=== PATIENT | female | born 1995 | race African-American/Black ===

== ENCOUNTER → 2021-04-30 14:17 | Outpatient (CLI) | payer OTHER, MEDICAID, SELFPAY ==
--- NOTE | 2021-04-30 14:24 | DI.US.S_ITS ---
PROCEDURE: US OB LIMITED INDICATIONS: DATING, LATE TO CARE OUTSIDE/PRIOR DATING DATA: First dating scan (date and location): 04/30/2021 . Estimated date of delivery (STEPHANE) from first dating scan: 10/06/2021 . TECHNIQUE: Real-time scanning was performed of the fetus, with image documentation and biometric measurements. Endovaginal scanning: No COMPARISON: [facility], , US OB < 14 WEEKS + OB TRANSVAG, 02/14/2021, 2:43. FINDINGS: General: A single living intrauterine gestation is present. Presentation: Variable. Placenta: Placental position is posterior , without previa. Amniotic fluid index: 13.3 cm, normal range is 5-24 cm. heart rate: 155 beats per minute. Maternal cervical canal: 3.6 cm long. Normal lower limit is 2.5 cm. biometrics: Biparietal diameter: 17 weeks 5 days Head circumference: 17 weeks 3 days Abdominal circumference: 17 weeks 1 day Femur length: 16 weeks 5 days Estimated gestational age from initial scan: not applicable. Composite gestational age from present scan: 17 weeks 2 days Estimated weight and percentile: 177 g Measurement variability for biometric dating: +/- 7 days from 14 weeks to 15 weeks 6 days gestation, +/- 10 days from 16 weeks to 21 weeks 6 days gestation, +/- 2 weeks from 22 weeks to 27 weeks 6 days gestation, +/- 3 weeks for 28 weeks gestation or later. weight reference: 4500 g or EFW >90/95% is considered macrosomia or large for gestational age. EFW <10% is small for gestational age. EFW 5% or less is considered intra-uterine growth restriction. Other: Limited anatomy. IMPRESSION: 17 week 2 day single living IUP corresponding to ultrasound STEPHANE of 10/06/2021. Limited anatomic survey secondary to early age. Follow-up recommended. Dictated by: Jatin PAUL Interpreted: Shreyas Barrett MD on 04/30/2021 at 15:57 Transcribed by: EASTON on 04/30/2021 at 15:59 Approved by: Shreyas Barrett M.D. on 04/30/2021 at 17:16
== END ==
PROVIDERS: Referring Provider Obstetrics & Gynecology; Visit Provider Obstetrics & Gynecology
DX: Z36.87 Encounter for antenatal screening for uncertain dates (principal); Z3A.17 17 weeks gestation of pregnancy
CPT/HCPCS: 76815

== ENCOUNTER → 2021-05-01 11:57 | Outpatient (CLI) | payer OTHER, MEDICAID, SELFPAY ==
[2021-05-01 12:58] LABS: Add Manual Diff / Slide Review NO; Basophils Absolute Auto 0 /uL (0-100); Basophils Percent Auto 0.4 % (0-2); Eosinophils Absolute Auto 0 /uL (0-450); Eosinophils Percent Auto 0.5 % (2-4); Hematocrit 36.4 % (36-46); Hemoglobin 12.4 g/dL (12.0-16.0); Lymphocytes Absolute Auto 1600 /uL (1100-4500); Lymphocytes Percent Auto 24.1 % (25-40); Mean Corpuscular Hemoglobin 30.3 PG (26-34); Monocytes Absolute Auto 400 /uL (0-900); Monocytes Percent Auto 5.9 % (3-14); Neutrophils Absolute Auto 4700 /uL (1500-7000); Neutrophils Percent Auto 69.1 % (50-75); Platelet Count 221 X10^3/uL (150-400); Red Blood Cell Count 4.09 X10^6/uL (4.0-5.2); Red Cell Distribution Width 14.3 % (11.6-14.8); White Blood Cell Count 6.8 X10^3/uL (4.5-11.0)
[2021-05-01 13:59] LABS: Appearance Urine UA SL CLOUDY; Bilirubin Urine UA NEGATIVE (NEGATIVE); Color Urine UA YELLOW; Glucose Urine UA TRACE g/dL (Negative); Ketones Urine UA NEGATIVE (NEGATIVE); Leukocyte Esterase Urine UA 1+ (NEGATIVE); Nitrite Urine UA NEGATIVE (Negative); Occult Blood Urine UA NEGATIVE (Negative); Protein Urine UA 1+ (Negative); Specific Gravity Urine UA 1.015 (1.000-1.035)
[2021-05-01 14:12] LABS: RBC Urine None Seen (0-5/HPF)
[2021-05-01 14:32] LABS: WBC Urine 5-10/HPF (0-5/HPF)
[2021-05-01 14:33] LABS: Bacteria Urine Many (>30); Squamous Epithelial Cell Urine >30 /HPF (0-5/HPF)
[2021-05-01 15:04] LABS: Vitamin B12 296 pg/mL (239-931)
[2021-05-01 15:42] LABS: Vitamin D 25 Hydroxy (D3) 22.3 ng/mL (30.0-100.0)
[2021-05-02 08:27] LABS: RPR Screen Non Reactive (Non Reactive)
[2021-05-02 08:36] LABS: Varicella IgG Antibody <135 index (Immune >165)
[2021-05-02 19:09] LABS: Hepatitis B Surface Antigen NEGATIVE s/c (NEGATIVE); Rubella Antibody IgG 20.6 IU/mL (>15)
[2021-05-02 19:34] LABS: Hep C Virus Ab w/Reflex Quant NEGATIVE s/c (NEGATIVE)
[2021-05-02 20:14] LABS: HIV 1 & 2 Ab/Ag 4th Gen Combo NEGATIVE (NEGATIVE)
[2021-05-03 19:55] LABS: AFP, Serum 50.5 ng/mL (.); Calc Gestational Age Ultrasound (.); Estriol, Free 1.96 ng/mL (.); Inhibin A, Dimeric 200.68 pg/mL (.); Inhibin A, MoM 1.55 (.); Maternal Ethnicity Other (.); Maternal Weight 203 lbs (.); Number of Fetuses No (.); OSBR Risk 1 IN 2523 (.); Results Report (.); Test Results *Screen Negative* (.); hCG, Serum 60819 mIU/mL (.)
== END ==
PROVIDERS: Referring Provider Obstetrics & Gynecology; Visit Provider Obstetrics & Gynecology
DX: Z34.82 Encounter for supervision of other normal pregnancy, second trimester (principal); Z3A.17 17 weeks gestation of pregnancy
CPT/HCPCS: 36415; 80055; 81003; 81015; 82105; 82306; 82607; 82677; 84702; 86336; 86787; 86803; 86850; 86900; 86901; 87086; 87389

== ENCOUNTER → 2021-05-23 08:51 | Outpatient (CLI) | payer OTHER, MEDICAID, SELFPAY ==
--- NOTE | 2021-05-23 08:52 | DI.US.S_ITS ---
PROCEDURE: US OB >= 14 WEEKS FETUS INDICATIONS: ANATOMY OUTSIDE/PRIOR DATING DATA: Last menstrual period (LMP): Unknown. LMP-based estimated date of delivery (STEPHANE): Unknown. First dating scan (date and location): 02/14/2021 [facility]. Estimated date of delivery (STEPHANE) from first dating scan: 10/06/2021. TECHNIQUE: Real-time scanning was performed of the fetus, with image documentation and biometric measurements. Endovaginal scanning: Not performed. COMPARISON: [facility], OB LIMITED, 04/30/2021, 14:28. FINDINGS: General: A single living intrauterine gestation is present. Presentation: Variable. Placenta: Placental position is posterior fundal, without previa. Amniotic fluid index: 17.4 cm, normal range is 5-24 cm. heart rate: 169 beats per minute. Maternal cervical canal: 4.9 cm long. Normal lower limit is 2.5 cm. biometrics: Biparietal diameter: 4.9 cm, 20 weeks 5 days Head circumference: 12.5 cm, 20 weeks 0 days Abdominal circumference: 14.9 cm, 20 weeks 1 day Femur length: 3.2 cm, 19 weeks 6 days Estimated gestational age from initial scan: 20 weeks 4 days Composite gestational age from present scan: 20 weeks 1 day Estimated weight and percentile: 330 g, 21st percentile Measurement variability for biometric dating: +/- 7 days from 14 weeks to 15 weeks 6 days gestation, +/- 10 days from 16 weeks to 21 weeks 6 days gestation, +/- 2 weeks from 22 weeks to 27 weeks 6 days gestation, +/- 3 weeks for 28 weeks gestation or later. weight reference: 4500 g or EFW >90/95% is considered macrosomia or large for gestational age. EFW <10% is small for gestational age. EFW 5% or less is considered intra-uterine growth restriction. Anatomic survey: Neuro: Ventricles are non-dilated at less than 10 mm. Cisterna magna is normal at 3-11 mm. Cerebellum is normal in size and morphology. Nuchal skin fold: Normal at less than 6 mm between 14-21 weeks gestational age. Face: Nose and lips, facial profile are normal. Spine: No evidence for spina bifida. Heart: 4-chambered heart is present, with normal ventricular outflow tracts. Diaphragm: Diaphragm is intact. Stomach: Left-sided stomach is present. Kidneys: No hydronephrosis. Normal is less than 5 mm in 2nd trimester, less than 7 mm in 3rd trimester. Cord: 3-vessel cord has orthotopic insertion. Bladder: Normal in size. Extremities: All 4 extremities identified. IMPRESSION: 1. [place] living intrauterine at 20 weeks 1 day based on today's ultrasound. This is concordant with the prior ultrasound. There is expected interval growth. 2. Normal placenta and amniotic fluid. 3. Normal and complete anatomic survey. Dictated by: Thomas Moise M.D. on 05/23/2021 at 10:20 Approved by: Thomas Moise M.D. on 05/23/2021 at 10:25
== END ==
PROVIDERS: Referring Provider Obstetrics & Gynecology; Visit Provider Obstetrics & Gynecology
DX: Z34.82 Encounter for supervision of other normal pregnancy, second trimester (principal); Z3A.20 20 weeks gestation of pregnancy
CPT/HCPCS: 76811

== ENCOUNTER → 2021-05-30 09:27 | Outpatient (CLI) | payer OTHER, MEDICAID, SELFPAY ==
[2021-05-30 13:03] LABS: Bacteria Urine None Seen; RBC Urine None Seen (0-5/HPF)
[2021-05-30 13:40] LABS: Appearance Urine UA TURBID; Bilirubin Urine UA NEGATIVE (NEGATIVE); Color Urine UA YELLOW; Glucose Urine UA NEGATIVE (Negative); Ketones Urine UA NEGATIVE (NEGATIVE); Leukocyte Esterase Urine UA 2+ (NEGATIVE); Nitrite Urine UA NEGATIVE (Negative); Occult Blood Urine UA TRACE-INTACT (Negative); Protein Urine UA 1+ (Negative)
[2021-05-30 14:25] LABS: WBC Urine 5-10/HPF (0-5/HPF)
[2021-05-30 14:26] LABS: Amorphous Sediment Urine 3+; Calcium Oxalate Crystals Urine Few
[2021-05-30 14:28] LABS: Culture Indicated Urine Specimen Cultured; Squamous Epithelial Cell Urine 1-5 /HPF (0-5/HPF)
== END ==
PROVIDERS: Visit Provider Obstetrics & Gynecology
DX: Z34.82 Encounter for supervision of other normal pregnancy, second trimester (principal); R39.9 Unspecified symptoms and signs involving the genitourinary system; Z3A.22 22 weeks gestation of pregnancy
CPT/HCPCS: 81001; 87086

== ENCOUNTER → 2021-07-06 08:11 | Outpatient (CLI) | payer OTHER, MEDICAID, SELFPAY | PROVIDERS: Referring Provider Obstetrics & Gynecology; Visit Provider Obstetrics & Gynecology | DX: Z34.82 Encounter for supervision of other normal pregnancy, second trimester (principal); Z3A.25 25 weeks gestation of pregnancy; Z53.8 Procedure and treatment not carried out for other reasons ==

== ENCOUNTER 2021-07-06 08:35 | Emergency (ER) | payer OTHER, MEDICAID, SELFPAY ==
[2021-07-06] VITALS (7 sets, daily range): BP systolic 91–111; BP diastolic 60–73; PULSE 61–70; RESP 14–18; TEMP 36.9; O2SAT 98–100; BMI 36.6
--- NOTE | 2021-07-06 08:47 | ED.GENADULT ---
HPI - General Adult General Chief complaint: Dizziness Stated complaint: dizziness, can't see, heat flashes Time Seen by Provider: 07/06/21 08:36 Source: patient Mode of arrival: Wheelchair History of Present Illness HPI narrative: Patient is a 25 year old female. Second trimester. Was here at the hospital for a scheduled outpatient ultrasound. States she was sitting at the [employer] registration desk when she started to feel lightheaded. She states that her vision went white. Stated that she could hear anything. At the time was not having chest pain. No shortness of breath. Did not feel like her heart was beating faster beating slow. She currently feels better but is still somewhat lightheaded. No vaginal bleeding. No urinary symptoms. No cramping. No diarrhea. No nausea vomiting. Related Data Home Medications Medication Instructions Recorded Confirmed prenat.vits,prateek,ojq-sjva-sklci 1 tab PO DAILY 04/27/21 05/01/21 Allergies Allergy/AdvReac Type Severity Reaction Status Date / Time latex Allergy Intermediate Red, Verified 05/01/21 11:04 irritated skin. Review of Systems Eyes Eyes: Reports system reviewed and no additional complaints, except as documented ENT Ears, Nose, Mouth, and Throat: Reports system reviewed and no additional complaints, except as documented Cardiovascular Cardiovascular: Reports as per HPI and Reports system reviewed and no additional complaints, except as documented Respiratory Respiratory: Reports as per HPI and Reports system reviewed and no additional complaints, except as documented Gastrointestinal Gastrointestinal: Reports as per HPI and Reports system reviewed and no additional complaints, except as documented Genitourinary Genitourinary: Reports system reviewed and no additional complaints, except as documented and Reports as per HPI Musculoskeletal Musculoskeletal: Reports system reviewed and no additional complaints, except as documented Integumentary/Breasts Skin/Breast: Reports system reviewed and no additional complaints, except as documented Neurologic Neurologic: Reports system reviewed and no additional complaints, except as documented Hematologic/Lymphatic On Anticoagulants: No Allergic/Immunologic Allergic/Immunologic: Reports system reviewed and no additional complaints, except as documented Patient History Medical History Gastroesophageal reflux during in first trimester, antepartum Late care affecting , antepartum Surgical History (Updated 05/01/21 @ 13:49 by Yamil Hanson MD) History of weight loss surgery (~11/04/20) [place] teeth extracted (~11/2019) Family History Mother No problems noted. Father No problems noted. Grandmother No problems noted. Grandfather No problems noted. Grandmother Blind in both eyes Grandfather No problems noted. Social History marital status: unmarried,living together (Paige', life partner.) number of children: 2 household members: spouse and children (Paige's daughter lives with them half of the year. ) lives independently: Yes caregiver/support person: No housing: house pets and animals: Yes (1 dog: safe. 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 Prior to her gastric surgery, flucuated 100lbs+/- annually. Nexplanon caused wt gain, had it removed. ) well-balanced diet: daily or most days (Small, frequent meals, eat well most of time.) daily servings fruits/ve or more times/day caffeine: Yes (Gibraltarian milk tea, 4 small cans/week. ) Type(s) of exercise: walking (Frequent walks with son. ) and normal ROM and activity (Mom to busy 6 year old. ) frequency: daily duration: 30-45 minutes/day Smoking Status: Never smoker Exam Initial Vital Signs Initial Vital Signs: Vital Signs Temperature 98.4 F 07/06/21 08:50 Pulse Rate 70 07/06/21 08:50 Respiratory Rate 18 07/06/21 08:50 Blood Pressure 111/73 07/06/21 08:50 Pulse Oximetry 98 07/06/21 08:50 Const General: cooperative, healthy appearing, comfortable and well developed HENVA Head: normal to inspection and normocephalic Eyes General: appearance normal, both eyes and all related structures Resp Effort & Inspection: normal respiratory effort Auscultation: clear to auscultation bilaterally Cardio Rate: regular rate Rhythm: regular rhythm GI Palpation: soft Other: Gravid Other: No vaginal bleeding Skin Lesions: no lesions Rashes: no rashes Neuro General: patient alert, patient awake and patient oriented x3 Extrem General: normal to inspection and capillary refill normal Psych Appearance: grossly normal and well kempt Course Orders Ordered: ED Orders 07/06/21 08:48 EKG-12 Lead Stat 07/06/21 08:57 Complete Blood Count AUTO DIFF Stat Comprehensive Metabolic Panel Stat Lipase Stat Discontinued Medications Sodium Chloride (Normal Saline 0.9%) 1,000 mls @ 1,000 mls/hr IV BOLUS ONE Stop: 07/06/21 09:39 Last Infusion: 07/06/21 10:22 Dose: 0 mls/hr Documented by: Admin: 07/06/21 09:11 Dose: 1,000 mls/hr Documented by: THIERRY Vital Signs Vital signs: Vital Signs - 8 hr 07/06/21 08:50 07/06/21 09:30 07/06/21 10:07 Temperature 98.4 F Pulse Rate 70 70 65 Respiratory Rate 18 18 16 Blood Pressure 111/73 101/67 91/60 Pulse Oximetry 98 98 100 Medical Decision Making Lab Data Lab results reviewed: Yes I reviewed the patient's lab results. Result diagrams: 07/06/21 08:57 07/06/21 08:57 Labs: Lab Results 07/06/21 07/06/21 Range/Units 08:57 08:57 WBC 6.4 (4.5-11.0) X10^3/uL RBC 3.74 L (4.0-5.2) X10^6/uL Hgb 11.3 L (12.0-16.0) g/dL Hct 33.6 L (36-46) % MCV 89.8 (80-100) fL MCH 30.2 (26-34) PG MCHC 33.6 (30-36) % RDW 13.4 (11.6-14.8) % Plt Count 248 (150-400) X10^3/uL Neut % (Auto) 64.0 (50-75) % Lymph % (Auto) 28.8 (25-40) % [place] % (Auto) 6.2 (3-14) % Eos % (Auto) 0.6 L (2-4) % Baso % (Auto) 0.4 (0-2) % Neut # (Auto) 4100 (4651-4380) /uL Lymph # (Auto) 1800 (9296-4084) /uL [place] # (Auto) 400 (0-900) /uL Eos # (Auto) 0 (0-450) /uL Baso # (Auto) 0 (0-100) /uL Sodium 135 L (137-145) mmol/L Potassium 3.8 (3.4-5.1) mmol/L Chloride 107 (98-107) mmol/L Carbon Dioxide 21 L (22-32) mmol/L BUN 6 L (7-17) mg/dL Creatinine 0.44 L (0.52-1.04) mg/dL Estimated GFR > 60.0 (>60) mL/min BUN/Creatinine Ratio 13.6 (6-22) Glucose 94 (70-100) mg/dL Calcium 9.2 (8.4-10.2) mg/dL Total Bilirubin 0.6 (0.2-1.3) mg/dL AST 22 (14-36) IU/L ALT 9 (<35) IU/L Alkaline Phosphatase 60 (38-126) U/L Total Protein 7.2 (6.3-8.2) g/dL Albumin 3.9 (3.5-5.0) g/dL Globulin 3.3 (1.7-4.1) g/dL Albumin/Globulin Ratio 1.2 (1.0-2.8) Lipase 71 (23-300) U/L Urine Dip Bedside Urine Glucose Negative Bedside Urine Bilirubin - Negative Bedside Urine Ketone - Negative Urine Specific [place] 1.015 Bedside Urine Occult Blood - Negative Bedside Urine pH 8.0 Bedside Urine Protein - Negative Bedside Urine Urobilinogen - Negative Bedside Urine Nitrite - Negative Bedside Urine Leukocytes +/- 15 Esterase Point of care testing: Urine Dip Bedside Urine Glucose Negative Bedside Urine Bilirubin - Negative Bedside Urine Ketone - Negative Urine Specific [place] 1.015 Bedside Urine Occult Blood - Negative Bedside Urine pH 8.0 Bedside Urine Protein - Negative Bedside Urine Urobilinogen - Negative Bedside Urine Nitrite - Negative Bedside Urine Leukocytes +/- 15 Esterase ECG Data Attestation: I personally reviewed and interpreted this ECG as follows: Interpretation: Sinus rhythm Ventricular rate 91 Normal axis Normal QRS Normal QTC No ST T wave changes MDM Narrative Medical decision making narrative: Labs unremarkable. Has no specific related symptoms. No cramping. No vaginal bleeding. Feels better after fluids. Symptoms today most likely vasovagal. Will discharge patient home without further workup. No need for radiologic studies. Will have her contact the ultrasound department to see if she can reschedule her ultrasound for today or if she can get it performed today. She will keep all of her scheduled medical appointments. She expressed understanding and agreement of return precautions. Discharge Plan Departure Patient Disposition: Home Clinical Impression: Vasovagal syncope, Instructions: DI for Syncope in Adults (Fainting) Activity Restrictions/Additional Instructions: Be sure to increase your fluid intake. Keep all of your scheduled medical appointments. Return to the emergency department for any new or worsening symptoms Prescriptions: No Action prenat.vits,prateek,tfb-[id number]-[id number] Tablet 1 tab PO DAILY RF: 0 Referrals: Miscellaneous,Doctor, [Primary Care Provider] -
[2021-07-06] MEDS: SODIUM CHLORIDE 0.9% 1,000 ML 1000 ML IV (09:11)
[2021-07-06 09:12] LABS: Add Manual Diff / Slide Review NO; Basophils Absolute Auto 0 /uL (0-100); Basophils Percent Auto 0.4 % (0-2); Eosinophils Absolute Auto 0 /uL (0-450); Eosinophils Percent Auto 0.6 % (2-4); Hematocrit 33.6 % (36-46); Hemoglobin 11.3 g/dL (12.0-16.0); Lymphocytes Absolute Auto 1800 /uL (1100-4500); Lymphocytes Percent Auto 28.8 % (25-40); Mean Corpuscular HGB Conc 33.6 % (30-36); Mean Corpuscular Hemoglobin 30.2 PG (26-34); Mean Corpuscular Volume 89.8 fL (80-100); Monocytes Absolute Auto 400 /uL (0-900); Monocytes Percent Auto 6.2 % (3-14); Neutrophils Absolute Auto 4100 /uL (1500-7000); Platelet Count 248 X10^3/uL (150-400); Red Blood Cell Count 3.74 X10^6/uL (4.0-5.2); Red Cell Distribution Width 13.4 % (11.6-14.8); White Blood Cell Count 6.4 X10^3/uL (4.5-11.0)
[2021-07-06 09:23] LABS: Alanine Aminotransferase 9 IU/L (<35); Albumin 3.9 g/dL (3.5-5.0); Albumin Globulin Ratio 1.2 (1.0-2.8); Alkaline Phosphatase 60 U/L (38-126); Aspartate Aminotransferase 22 IU/L (14-36); BUN Creatinine Ratio 13.6 (6-22); Bilirubin Total 0.6 mg/dL (0.2-1.3); Blood Urea Nitrogen 6 mg/dL (7-17); Calcium 9.2 mg/dL (8.4-10.2); Carbon Dioxide 21 mmol/L (22-32); Chloride 107 mmol/L (98-107); Estimated Glomerular Filt Rate > 60.0 mL/min (>60); Globulin 3.3 g/dL (1.7-4.1); Glucose 94 mg/dL (70-100); HEMOLYSIS 34 (0-50); Lipase 71 U/L (23-300); Potassium 3.8 mmol/L (3.4-5.1); Sodium 135 mmol/L (137-145); Total Protein 7.2 g/dL (6.3-8.2)
== END 2021-07-06 10:44 | disposition home or self-care (01) ==
PROVIDERS: Emergency Provider Emergency Medicine
DX: O26.892 Other specified pregnancy related conditions, second trimester (principal); R55 Syncope and collapse
CPT/HCPCS: 36415; 80053; 81003; 83690; 85025; 93005; 93010; 96360; 99284

== ENCOUNTER 2021-08-24 23:50 | Outpatient (CLI) | payer OTHER, MEDICAID, SELFPAY | END 2021-08-25 00:42 | disposition home or self-care (01) | LOC: LABOR 23:54 → OB 08-28 11:16 | PROVIDERS: Referring Provider Obstetrics & Gynecology; Visit Provider Obstetrics & Gynecology | DX: O26.893 Other specified pregnancy related conditions, third trimester (principal); R10.2 Pelvic and perineal pain; Z3A.34 34 weeks gestation of pregnancy | CPT/HCPCS: 59025; G0378; G0379 ==

== ENCOUNTER → 2021-09-05 17:21 | Outpatient (CLI) | payer OTHER, MEDICAID, SELFPAY ==
[2021-09-06 15:25] LABS: Strep Grp B PCR NEG for Grp B Strep
== END ==
PROVIDERS: Visit Provider Obstetrics & Gynecology
DX: Z34.83 Encounter for supervision of other normal pregnancy, third trimester (principal); Z3A.36 36 weeks gestation of pregnancy
CPT/HCPCS: 87653

== ENCOUNTER → 2021-09-21 15:17 | Outpatient (CLI) | payer OTHER, MEDICAID, SELFPAY ==
--- NOTE | 2021-09-21 15:18 | DI.US.S_ITS ---
PROCEDURE: US OB FOLLOW UP INDICATIONS: GROWTH, SIZE LESS THAN DATES OUTSIDE/PRIOR DATING DATA: First dating scan (date and location): 04/30/2021. Estimated date of delivery (STEPHANE) from first dating scan: 10/06/2021. The calculations are made using the ultrasounds STEPHANE of 10/06/2021. TECHNIQUE: Real-time scanning was performed of the fetus, with image documentation and biometric measurements. Endovaginal scanning: No COMPARISON: [facility], US, US OB >= 14 WEEKS FETUS, 07/26/2021, 13:03. FINDINGS: General: A single living intrauterine gestation is present. Presentation: Breech. Placenta: Placental position is posterior fundal , without previa. Amniotic fluid index: 9.9 cm, normal range is 5-24 cm. heart rate: 153 beats per minute. Maternal cervical canal: 9.9 cm long. Normal lower limit is 2.5 cm. biometrics: Biparietal diameter: 35 weeks 5 days Head circumference: 36 weeks 4 days Abdominal circumference: 34 weeks 4 days Femur length: 33 weeks 6 days Clinically estimated gestational age: 37 weeks 6 days Composite gestational age from present scan: 35 weeks 1 day Estimated weight and percentile: 2461 g; 3rd percentile Other: Not applicable. IMPRESSION: Single living IUP redemonstrated and interval growth is less than expected with the estimated weight 3rd percentile. Developing intrauterine growth restriction cannot be excluded and close clinical correlation and follow-up is recommended. We strive to produce accurate, complete, and clear reports of imaging services. To assist us in improving patient care, this report was composed using standard report templates and voice recognition software. Therefore, it may contain abnormal punctuation, insertions and/or omissions. Occasional wrong-word or sound-alike substitutions may occur. Though we review the report and make efforts to correct it, we do recommend that the report be read carefully in proper context to recognize any text inaccuracies. Dictated by: Jatin PAUL Interpreted: Valdez Trejo MD on 09/21/2021 at 15:57 Transcribed by: MO on 09/21/2021 at 16:00 Approved by: Valdez Trejo M.D. on 09/24/2021 at 9:15
== END ==
PROVIDERS: Referring Provider Obstetrics & Gynecology; Visit Provider Obstetrics & Gynecology
DX: O26.843 Uterine size-date discrepancy, third trimester (principal); Z3A.35 35 weeks gestation of pregnancy
CPT/HCPCS: 76816

== ENCOUNTER 2021-09-25 11:20 | Observation (INO) | payer OTHER, MEDICAID, SELFPAY ==
[2021-09-25] MEDS: LACTATED RINGERS 1,000 ML 1000 ML IV (12:26)
--- NOTE | 2021-09-25 13:27 | P.TNLD_ITS ---
Visit Information Visit Information Date of evaluation: 09/25/21 Primary OB Provider: Yamil Hanson Reason for Evaluation: Yes other Comments/Additional reasons for admission: External cephalic version attempt. Patient was found to be in breech presentation on pelvic ultrasound performed 09/21/2021. The patient presents today for attempt at external cephalic version. Induction previously scheduled due to IUGR (3rd percentile) with normal ZOË. [facility] Medical History Gastroesophageal reflux during in first trimester, antepartum Late care affecting , antepartum Surgical History (Updated 05/01/21 @ 13:49 by Yamil Hanson MD) History of weight loss surgery (~11/04/20) [place] teeth extracted (~11/2019) Family History Mother No problems noted. Father No problems noted. Grandmother No problems noted. Grandfather No problems noted. Grandmother Blind in both eyes Grandfather No problems noted. Social History marital status: unmarried,living together (Paige', life partner.) number of children: 2 household members: spouse and children (Paige's daughter lives with them half of the year. ) lives independently: Yes caregiver/support person: No housing: house pets and animals: Yes (1 dog: safe. 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 Prior to her gastric surgery, flucuated 100lbs+/- annually. Nexplanon caused wt gain, had it removed. ) well-balanced diet: daily or most days (Small, frequent meals, eat well most of time.) daily servings fruits/ve or more times/day caffeine: Yes (English milk tea, 4 small cans/week. ) Type(s) of exercise: walking (Frequent walks with son. ) and normal ROM and activity (Mom to busy 6 year old. ) frequency: daily duration: 30-45 minutes/day Exam Const General: cooperative, well developed and No acute distress Nutritional Appearance: average body habitus Orientation: alert and oriented x3 HENMT Head: normal to inspection Eyes General: appearance normal, both eyes and all related structures Neck Neck: normal visual inspection Resp Effort & Inspection: normal respiratory effort and able to speak in complete sentences GI Palpation: soft, no hepatosplenomegaly and mass (Soft, nontender fundus, 36 cm fundal height) Uterus Location (Fundal Height): 36 Presentation: vertex (Confirmed with bedside ultrasound) Estimated Weight (lbs): 6 Evaluation Evaluation Baseline heart rate: 140 Variability: Moderate (11-25) monitor accelerations: Present Monitor Decelerations: Absent Category of Tracing: Reactive Status: Category l Cervical dilation (cm): 2 Cervical effacement (%): 50 station: -2 Comments: Cervix is soft, posterior. Atkins score = 5. Diagnosis, Plan/Disposition Final Diagnosis (1) : Status: Acute (2) IUGR (intrauterine growth restriction): Status: Acute (3) Susceptible to varicella (non-immune), currently : Status: Acute Plan/Disposition Plan: Patient will return for ripening and induction later today. OB Disposition: home
== END 2021-09-25 13:22 | disposition home or self-care (01) ==
PROVIDERS: Admitting Provider Obstetrics & Gynecology; Referring Provider Obstetrics & Gynecology; Visit Provider Obstetrics & Gynecology
DX: O32.1XX0 Maternal care for breech presentation, not applicable or unspecified (principal); O36.5930 Maternal care for other known or suspected poor fetal growth, third trimester, not applicable or unspecified; Z3A.39 39 weeks gestation of pregnancy
CPT/HCPCS: 59025; 59050; 96372; G0378; G0379

== ENCOUNTER 2021-09-26 06:59 | Inpatient (IN) | payer OTHER, MEDICAID, SELFPAY ==
--- NOTE | 2021-09-26 08:06 | PM.OBHP.1 ---
OB HPI Date/Time Date of admission: 09/26/21 Date Patient Seen: 09/26/21 Time Patient Seen: 08:07 History of Present Condition Chief complaint: OBS OF LABOR : 2 Para: 1 Estimated Date of Delivery: 10/01/21 Estimated Gestational Age (weeks): 39+2 Narrative: Eddie Bowie is a 25 year old admitted at 39+2 for induction due to IUGR with her in the 3rd %'tile EFW. GBS negative. Indications Indication for induction OB: other (Advanced maternal age, 39+ 2 weeks gestational age) History of Present care: good care Dating criteria: LMP confirmed by 1st trimester US Obstetrical complications: growth restriction Medical complications: none Preadmission Labs Blood type: A (+) positive -: Antibody screen: negative, GBS status: negative, HBsAG: negative, HIV: negative and RPR/VDLR: negative -: Chlamydia screen: not detected and Gonorrhea screen: not detected -: Rubella: immune and Varicella: not immune HCT: 27.8 HCAB: negative PAP: Normal Quad screen: Normal Narrative: Unable to tolerate GDM screen Prior (ies) History: x1 Evaluation Evaluation Baseline heart rate: 120 Variability: Moderate (11-25) monitor accelerations: Present Monitor Decelerations: Absent Category of Tracing: Reactive Status: Category l Dilation (cm): 2 Effacement (%): 50 Dilation: 1-2 cm Effacement: 40-50% station: -2 Position of cervix: posterior Consistency: soft Atkins score: 5 PFSH Medical History Gastroesophageal reflux during in first trimester, antepartum Late care affecting , antepartum Surgical History History of weight loss surgery (~11/04/20) [place] teeth extracted (~11/2019) Family History Mother No problems noted. Father No problems noted. Grandmother No problems noted. Grandfather No problems noted. Grandmother Blind in both eyes Grandfather No problems noted. Social History marital status: unmarried,living together (Fiance', life partner.) number of children: 2 household members: spouse and children (Paige's daughter lives with them half of the year. ) lives independently: Yes caregiver/support person: No housing: house pets and animals: Yes (1 dog: safe. 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 Prior to her gastric surgery, flucuated 100lbs+/- annually. Nexplanon caused wt gain, had it removed. ) well-balanced diet: daily or most days (Small, frequent meals, eat well most of time.) daily servings fruits/ve or more times/day caffeine: Yes (Belarusian milk tea, 4 small cans/week. ) Type(s) of exercise: walking (Frequent walks with son. ) and normal ROM and activity (Mom to busy 6 year old. ) frequency: daily duration: 30-45 minutes/day Meds Home Medications and Allergies Home Medications Medication Instructions Recorded Confirmed Type prenat.vits,prateek,tet-meqn-oztwe 1 tab PO DAILY 04/27/21 09/26/21 History Allergies Allergy/AdvReac Type Severity Reaction Status Date / Time latex Allergy Intermediate Red, Verified 08/24/21 23:32 irritated skin. Review of Systems Review of Systems Narrative: Problem-specific ROS positives included in HPI OB Exam HENMT Head: normal to inspection Eyes General: appearance normal, both eyes and all related structures Resp Effort & Inspection: normal respiratory effort and able to speak in complete sentences Cardio Rhythm: regular rhythm Heart Sounds: S1 normal, S2 normal and no murmurs Uterus Location (Fundal Height): 35 Presentation: vertex Estimated Weight (lbs): 6 Objective Labs Result Diagrams: 09/26/21 08:45 Assessment and Plan Assessment and Plan Assessment and Plan narrative: ASSESSMENT Intrauterine gestation, 39+ 2 weeks gestational age Intrauterine growth restriction with normal ZOË and category 1 FHR tracing PLAN Admit for induction Anticipate Time Spent with Patient Total time spent with greater than 50% in coordination of care (as documented) at patient's floor/unit and/or counseling patient:: 15-24 minutes
[2021-09-26] MEDS: LACTATED RINGERS 1,000 ML 100 ML IV (08:10)
[2021-09-26] MEDS: OXYTOCIN PREMIX 30 UNIT/500 ML PLAST..BAG IV (08:42)
[2021-09-26 08:51] LABS: COVID19 -Nasal RAPID Negative (Negative)
[2021-09-26 09:01] LABS: Add Manual Diff / Slide Review NO; Basophils Absolute Auto 0 /uL (0-100); Basophils Percent Auto 0.4 % (0-2); Eosinophils Absolute Auto 0 /uL (0-450); Eosinophils Percent Auto 0.6 % (2-4); Hematocrit 27.8 % (36-46); Hemoglobin 9.4 g/dL (12.0-16.0); Lymphocytes Absolute Auto 1800 /uL (1100-4500); Lymphocytes Percent Auto 40.4 % (25-40); Mean Corpuscular Volume 82.4 fL (80-100); Monocytes Absolute Auto 400 /uL (0-900); Monocytes Percent Auto 9.4 % (3-14); Neutrophils Absolute Auto 2200 /uL (1500-7000); Neutrophils Percent Auto 49.2 % (50-75); Platelet Count 160 X10^3/uL (150-400); Red Blood Cell Count 3.37 X10^6/uL (4.0-5.2); Red Cell Distribution Width 13.5 % (11.6-14.8); White Blood Cell Count 4.4 X10^3/uL (4.5-11.0)
[2021-09-26] MEDS: ONDANSETRON 4 MG/2 ML INJ IV ×2 (09:08→22:30)
[2021-09-26 09:42] VITALS: BP 103/64
--- NOTE | 2021-09-26 13:37 | PM.OBPNLAB ---
Date/Time Date Patient Seen: 09/26/21 Time Patient Seen: 13:25 Pain Control Pain control: tolerating well Pelvic Exam Dilation (cm): 3 Effacement (%): 100 station: -1 Amniotic membrane status: Ruptured Comments: AROM attempted but unclear whether it was successful as no gross ROM occured. Contractions Contractions on admission: none Monitor mode: External Contraction frequency (min): 2 Contraction duration (min): 1 Contraction pattern: Regular Contraction phase: Resting Contraction intensity: Moderate Status status: Category l Heart Rate Baseline: 120 Monitor Accelerations: Present Monitor Decelerations: Absent Monitor Variability: Moderate Assessment and Plan Assessment: induction ongoing Plan: continuous present management Comments: Anticipate .
--- NOTE | 2021-09-26 15:41 | P.PCN_ITS ---
Regional Block Pre-procedure Procedure: Continuous Lumbar Epidural for L&D Attending OB provider: Yamil Hanson PMH/ROS narrative: with IUGR Hx: No personal or family history of anesthesia problems. PSH/Anesthesia history narrative: Previous fast labor without epidural Gastric sleeve 10/2020, no issues. Exam narrative: MP3, RRR, CTAB ASA Class: II Labs: Hct 27.8 % (36-46) L 09/26/21 08:45 Plt Count 160 X10^3/uL (150-400) 09/26/21 08:45 Medications: Current Medications Generic Name Dose Route Start Last Admin Trade Name Freq PRN Reason Stop Dose Admin Acetaminophen 650 mg 09/26/21 08:05 Acetaminophen 325 Mg Tablet PO Q4HR PRN Fever/Mild Pain (1-3) Carboprost Tromethamine 250 mcg 09/26/21 08:56 Carboprost 250 Mcg/Ml Ampul IM Q90M PRN Bleeding Fentanyl 50 mcg 09/26/21 08:56 Fentanyl 100 Mcg/2 Ml Inj IV Q1H PRN Pain, Moderate (4-6) Lactated Ringer's 1,000 mls @ 100 mls/hr 09/26/21 08:15 09/26/21 08:10 Lactated Ringers IV 100 mls/hr CONT GARRETT Administration Oxytocin/Lactated Ringer's 30 unit in 500 mls @ 3 mls/hr 09/26/21 08:15 09/26/21 08:42 Oxytocin Premix IV 3 milliunit/min TITRATE GARRETT 3 mls/hr Administration Protocol 3 MILLIUNIT/MIN Lactated Ringer's 1,000 mls @ 100 mls/hr 09/26/21 09:00 Lactated Ringers IV CONT GARRETT Tranexamic Acid 1,000 mg/ 100 mls @ 200 mls/hr 09/26/21 08:56 Sodium Chloride IV NOW PRN Bleeding Methylergonovine Maleate 0.2 mg 09/26/21 08:56 Methylergonovine 0.2 Mg Tablet PO Q6HR PRN Heavy Bleeding Methylergonovine Maleate 0.2 mg 09/26/21 08:56 Methylergonovine 0.2 Mg/Ml Vial IM NOW PRN Bleeding Misoprostol 800 mcg 09/26/21 08:56 Misoprostol 200 Mcg Tablet LA NOW PRN Bleeding Misoprostol 1,000 mcg 09/26/21 08:56 Misoprostol 200 Mcg Tablet LA NOW PRN Bleeding Misoprostol 400 mcg 09/26/21 08:56 Misoprostol 200 Mcg Tablet SL NOW PRN Bleeding Naloxone HCl 0.2 mg 09/26/21 08:56 Naloxone 0.4 Mg/Ml Vial IV Q2MIN PRN Opiate Reversal Ondansetron HCl 4 mg 09/26/21 08:54 09/26/21 09:08 Ondansetron 4 Mg/2 Ml Inj IV 4 mg Q4HR PRN Administration Nausea And Vomiting Oxytocin 10 unit 09/26/21 08:56 Oxytocin 10 Unit/Ml Vial IM NOW PRN Bleeding Allergies: Allergies Allergy/AdvReac Type Severity Reaction Status Date / Time latex Allergy Intermediate Red, Verified 08/24/21 23:32 irritated skin. Procedure Insertion date: 09/26/21 Insertion time: 15:15 Prep/Local: betadine x3 (chloroprep) and 1% lidocaine Interspace: L3-4 Patient position: sitting Needle: 18 gauge [employer] (with 27G pencil point needle-through needle for IT dose) Loss of resistance with: saline (with air bubble) KRISTY at (cm): 6 Catheter placed at SKIN (cm): 11 Catheter in SPACE (cm): 5 Insertion: Yes CSF, No Blood, No Paresthesia with insertion, No Paresthesia with injection and No Test dose reaction Initial Medications TEST DOSE time: 15:15 TEST DOSE: 1.5% lidocaine with epinephrine 1:200k (mL): 5 (3mL initial test dose, 2mL as part of first bolus) BOLUS DOSE time: 15:16 BOLUS DOSE (mL): 2 BOLUS DOSE med: other (10mcg fentanyl intrathecally, 90mcg fentanyl via epidural catheter) Infusion INFUSION: 0.0625% bupivacaine and with fentanyl 2 mcg/mL Initial rate (mL/hr): 12 (with bolus of 4mL Q15min lockout) Subsequent interventions: 20:40 - called with OB request to turn epidural down to aid with baby coming down. Asked RN to turn off the pump. 20:50 - discussed with patient, feels tightness with contractions but no pain, able to move legs at hip flexors and wiggle toes, but previously legs were quite heavy. OB would like more strength to help with positioning, not necessarily an decrease in the numbness to sensation. Patient agreeable to turn down from 12mL/hr to 9mL/hr. 4mL bolus Q15min available (and unused so far). Post-procedure Anesthesia time START: 14:58 Anesthesia time END: 21:53 Post-procedure Anesthesia Assessment: No Anesthesia complications
--- NOTE | 2021-09-26 18:25 | PM.OBPNLAB ---
Date/Time Date Patient Seen: 09/26/21 Time Patient Seen: 17:40 Pain Control Pain control: epidural Comments: Very comfortable Pelvic Exam Dilation (cm): 5 Effacement (%): 80 station: 0 Amniotic membrane status: Ruptured Comments: Clear fluid Contractions Monitor mode: External Contraction frequency (min): 2 Contraction pattern: Regular Contraction phase: Resting Contraction intensity: Moderate Status status: Category l Heart Rate Baseline: 115 Monitor Accelerations: Present Monitor Decelerations: Absent Monitor Variability: Moderate Assessment and Plan Assessment: induction ongoing Plan: continuous present management Comments: Will re-evaluate in 1-[address] FSE/IUPC if no change has occurred
--- NOTE | 2021-09-26 19:40 | PM.OBPNLAB ---
Date/Time Date Patient Seen: 09/26/21 Time Patient Seen: 19:30 Pain Control Pain control: tolerating well and epidural Pelvic Exam Dilation (cm): 5 Effacement (%): 80 station: -2 Amniotic membrane status: Ruptured Contractions Monitor mode: Internal (IUPC and FSE placed) Pitocin rate (mU/min): 10 Contraction frequency (min): 2 Contraction pattern: Regular Contraction phase: Resting Contraction intensity: Moderate Intrauterine tone measurement: 20 Status status: Category l Heart Rate Baseline: 120 Monitor Accelerations: Present Monitor Decelerations: Absent Monitor Variability: Moderate Comments: MVU = 30 mm x 4/10 minutes = 120 MVU Assessment and Plan Assessment: induction ongoing and other (Hypotonic uterine dysfunction) Comments: Titrate pitocin to generate adequate MVU's. Minimize exams and continue induction. Patient apprised of the reason for slow progress thus far and our efforts to stimulate more effective labor; i.e. pitocin titration, decrease MALIKA dosing/effect, verticcal positioning. She was counselled that prolonged ROM increased risk of maternal/ infection and at some point may become necessary if vaginal can't be affected due to intractible hypotonic uterine dysfunction. Patient understands but is adamant that she doesn't want to consider . Will continue to optimize conditions for expected given history of rapid labor and delivery of her first child who was bigger than this baby.
--- NOTE | 2021-09-26 22:17 | PM.OBPRVD ---
Events: Labor Induction, Labor Augmentation and Other (IUGR) Labor & Delivery Delivery date: 09/26/21 Intrapartal Events: Hypotonic Dysfunction Cervical ripening method: none Induction method: AROM Delivery monitor: external uterine and internal uterine Route of delivery: L&D Laceration Description: None Estimated blood loss (mL): 150 Narrative: Following slow entry into the active phase of labor, the patient rapidly progressed from 5 cm to complete and on the perineum. The patient delivered without pushing over an intact perineum a viable male infant Apgars 9/9, weight 2748 g (6# 0.9 oz), from the left occiput anterior position. Skin to skin contact was initiated immediately and delayed cord clamping was performed. The umbilical cord was doubly clamped and cut and a true knot was noted. Cord blood was obtained for routine studies. Following a separation bleed, gentle traction on the cord was applied and the placenta delivered intact with a central, three-vessel insertion. Perineum was then inspected and there were no lacerations or abrasions. Patient's or post delivery bleeding was minimal with IV Pitocin infusing and at the completion of delivery, both mother and were doing well. EBL approximately 150 cc. Complications experienced: none. Baby 1: gender: Male Presentation: vertex Position: Left Occiput Anterior Placenta delivery description: Spontaneous Cord Vessel Description: 3 Vessels and True Knot (x1) score (1 min): 9 score (5 min): 9 Plan for aftercare: Routine care
[2021-09-27] MEDS: IBUPROFEN 600 MG TABLET PO ×3 (03:01→20:27)
[2021-09-27 06:45] LABS: Hematocrit 29.1 % (36-46); Hemoglobin 9.8 g/dL (12.0-16.0)
[2021-09-27] MEDS: DOCUSATE 100 MG CAPSULE PO ×2 (08:46→20:28)
[2021-09-27] MEDS: DERMOPLAST SPRAY 20% 60 ML 1 SPRAY TOP (08:47)
[2021-09-27] MEDS: ACETAMINOPHEN 325 MG TABLET 650 MG PO ×2 (09:09→20:26)
--- NOTE | 2021-09-27 13:59 | PM.OBPN.1 ---
Subjective - OB Subjective Patient comments: no complaints and pain well controlled baby status: doing well feeding status: exclusively breast feeding Narrative: She's having minimal lochia and no significant pain/discomfort. Ambulating independently and tolerating a regular diet nicely. Date Patient Seen: 09/27/21 Time Patient Seen: 13:59 Exam Const General: cooperative and comfortable GI Inspection: normal to inspection Palpation: soft, no hepatosplenomegaly and mass (Fundus U-3, NT, firm) General: other (Deferred) Objective Labs Result Diagrams: 09/27/21 06:19 Labs: Laboratory Results - last 24 hr 09/27/21 06:19 Hgb 9.8 L Hct 29.1 L Assessment & Plan Assessment and Plan (1) IUGR (intrauterine growth restriction): Status: Acute (2) : Status: Acute (3) History of weight loss surgery: Problem details: Gastric sleeve surgery. Recovered well, no issues. Status: Acute Plan day: 1 plan OB: routine care Time Spent With Patient Time: Total time spent is greater than 50% in coordination of care (as documented) at patient's floor/unit and/or counseling patient: Time with patient: less than 15 minutes
--- NOTE | 2021-09-28 08:18 | P.DS_ITS ---
Discharge Providers Provider Date of admission: 09/26/21 06:59 Discharge Date: 09/28/21 Consults: 09/26/21 08:58 Consult to Anesthesiology Urgent Comment: Consulting Provider: Yamil Hanson Reason for consultation: MALIKA placement in labor Has provider been notified: No 09/27/21 22:13 Consult to Assistant Corporate Secretary Routine Comment: Discharge provider: Yamil Hanson MD Summary Hospital Course Date Patient Seen: 09/28/21 Time Patient Seen: 08:18 Diagnoses: Intrauterine , 39+ 2 weeks gestational age, delivered Status post normal spontaneous vaginal delivery Intrauterine growth restriction Chronic anemia Hospital Course: The patient was admitted on 09/26/2021 and Pitocin induction initiated. AROM performed on the afternoon of 09/26/2021 on the evening of 09/26/2021 the patient experienced a spontaneous vaginal of a male infant Apgars 9/9 and a weight of 2748 g (6 lb 0.9 oz). A true knot of the umbilical cord was noted at the time of delivery. The patient did not sustain any perineal trauma and no stitches were required. Following delivery the patient has had prompt return of bowel and bladder function, she is ambulating independently, tolerating a regular diet, and her pain is well controlled with oral medication. She will be discharged at this time and afebrile normotensive condition to home with medications to include OTC Tylenol and ibuprofen. No decision about contraception has been made. Follow-up will be in 6 weeks or as needed. Peripartum Data Infant Delivery Method: Natural Vaginal Laceration Description: None Episiotomy description: None Procedures: Spontaneous vaginal delivery, epidural placement in labor complications: none 1: Gender: Male Disposition of : home Discharge Diagnosis (1) IUGR (intrauterine growth restriction): Status: Acute (2) : Status: Acute Problem Details: Delivered (3) History of weight loss surgery: Status: Acute Problem Details: Gastric sleeve surgery. Recovered well, no issues. Status at Discharge Cognitive/behavioral status at discharge: oriented Functional status at discharge: independent ambulation Overall status at discharge: patient is progressing back to baseline Time Spent with Patient Time attestation: Total time spent providing and/or coordinating discharge services: Time spent: Less than 30 minutes Objective Labs Result Diagrams: 09/27/21 06:19 Exam Const General: cooperative and comfortable Nutritional Appearance: average body habitus Orientation: alert and oriented x3 HENMT Head: normal to inspection Ears: hearing grossly normal bilaterally Eyes General: appearance normal, both eyes and all related structures Neck Neck: normal visual inspection Resp Effort & Inspection: normal respiratory effort and able to speak in complete sentences GI Inspection: normal to inspection Palpation: soft, no hepatosplenomegaly and mass (Firm, nontender fundus, U -4) General: other (Deferred. Lochia minimal.) Extrem General: no calf tenderness Psych Appearance: grossly normal Mental Status: mental status grossly normal Speech and Movement: speech and movement normal Mood: congruent mood Affect: normal affect Attitude: cooperative Thought Process: normal Thought Content: normal Judgment: judgment good Discharge Plan Discharge Plan Patient Disposition: Home Provider Discharge Comment: Please review the written instructions provided at the time of discharge. Your follow-up appointment will be scheduled for 6 weeks and I look forward to seeing you then. If in the meanwhile however you have any issues, concerns, or questions please contact me through the office phone number or via the patient portal. Discharge orders & Medications Prescriptions: New ibuprofen 600 mg Tablet 600 mg PO Q6HR PRN (Reason: Pain, Moderate) 30 Days Qty: 60 1RF docusate sodium [Colace] 100 mg capsule 100 mg PO BID PRN (Reason: constipation) Qty: 60 1RF Continued prenat.vits,prateek,jyl-poog-zoalu Tablet 1 tab PO DAILY 0RF Follow up/Referrals: Yamil Hanson MD [Physician] - ( appointment on 11/07/2021 @ [address] Hanson) Diet/Activity/Treatments Diet: Diet as Tolerated Activity: As tolerated Skin/Wound/Dressing Care Report to your healthcare provider any signs of infection, such as:: chills, fever Dressing: N/A Visit Report/Discharge Packet Instructions: DI for Labor and Delivery, Vaginal , DI for and Nipple Soreness Stand Alone Forms: Discharge: Care
[2021-09-28 08:30] VITALS: BP 91/62; PULSE 56; RESP 17; TEMP 36.9
== END 2021-09-28 10:30 | disposition home or self-care (01) | DRG 560 ==
PROVIDERS: Admitting Provider Obstetrics & Gynecology; Referring Provider Obstetrics & Gynecology; Visit Provider Obstetrics & Gynecology
DX: O36.5930 Maternal care for other known or suspected poor fetal growth, third trimester, not applicable or unspecified (principal); Z3A.39 39 weeks gestation of pregnancy; Z37.0 Single live birth; O62.2 Other uterine inertia; O99.02 Anemia complicating childbirth; D63.8 Anemia in other chronic diseases classified elsewhere; O99.844 Bariatric surgery status complicating childbirth; Z20.822 Contact with and (suspected) exposure to COVID-19; O69.2XX0 Labor and delivery complicated by other cord entanglement, with compression, not applicable or unspecified; O32.1XX0 Maternal care for breech presentation, not applicable or unspecified
CPT/HCPCS: 01967; 36415; 59025; 59050; 59409; 85014; 85018; 85025; 86850; 86900; 86901; 87635; 96372; C9803; G0378; G0379; J2405; J2590

== ENCOUNTER → 2022-10-30 16:21 | Outpatient (CLI) | payer OTHER, MEDICAID, SELFPAY ==
[2022-10-30 17:18] LABS: Add Manual Diff / Slide Review NO; Basophils Absolute Auto 0 /uL (0-100); Basophils Percent Auto 0.2 % (0-2); Eosinophils Absolute Auto 100 /uL (0-450); Eosinophils Percent Auto 1.2 % (2-4); Hematocrit 34.6 % (36-46); Hemoglobin 11.8 g/dL (12.0-16.0); Lymphocytes Absolute Auto 1700 /uL (1100-4500); Lymphocytes Percent Auto 26.9 % (25-40); Mean Corpuscular HGB Conc 34.1 % (30-36); Mean Corpuscular Hemoglobin 28.4 PG (26-34); Mean Corpuscular Volume 83.2 fL (80-100); Monocytes Absolute Auto 300 /uL (0-900); Monocytes Percent Auto 5.3 % (3-14); Neutrophils Absolute Auto 4300 /uL (1500-7000); Neutrophils Percent Auto 66.4 % (50-75); Platelet Count 226 X10^3/uL (150-400); Red Blood Cell Count 4.15 X10^6/uL (4.0-5.2); Red Cell Distribution Width 14.2 % (11.6-14.8); White Blood Cell Count 6.5 X10^3/uL (4.5-11.0)
[2022-10-30 18:16] LABS: Appearance Urine UA CLEAR; Bilirubin Urine UA NEGATIVE (NEGATIVE); Color Urine UA YELLOW; Glucose Urine UA NEGATIVE (Negative); Ketones Urine UA 1+ (NEGATIVE); Leukocyte Esterase Urine UA TRACE (NEGATIVE); Nitrite Urine UA NEGATIVE (Negative); Occult Blood Urine UA NEGATIVE (Negative); Protein Urine UA TRACE (Negative); Specific Gravity Urine UA >=1.030 (1.000-1.035); Urobilinogen Urine UA 0.2 E.U./dL (0.2)
[2022-10-30 18:32] LABS: pH Urine UA 5.5 (4.5-8.0)
[2022-10-30 18:48] LABS: Bacteria Urine Few (2-10); Mucus Urine 1+ (Negative); RBC Urine None Seen (0-5/HPF); Squamous Epithelial Cell Urine 5-10 /HPF (0-5/HPF); WBC Urine 1-5/HPF (0-5/HPF)
[2022-10-31 07:11] LABS: RPR Screen Non Reactive (Non Reactive)
[2022-10-31 10:35] LABS: Varicella IgG Antibody <135 index (Immune >165)
[2022-10-31 20:22] LABS: HIV 1 & 2 Ab/Ag 4th Gen Combo NEGATIVE (NEGATIVE); Hep C Virus Ab w/Reflex Quant NEGATIVE s/c (NEGATIVE); Hepatitis B Surface Antigen NEGATIVE s/c (NEGATIVE); Rubella Antibody IgG 17.1 IU/mL (>15)
== END ==
PROVIDERS: Referring Provider Obstetrics & Gynecology; Visit Provider Obstetrics & Gynecology
DX: Z34.80 Encounter for supervision of other normal pregnancy, unspecified trimester (principal)
CPT/HCPCS: 36415; 80055; 81003; 81015; 86787; 86803; 86850; 86900; 86901; 87086; 87389

== ENCOUNTER → 2022-12-10 15:05 | Outpatient (CLI) | payer OTHER, MEDICAID, SELFPAY ==
--- NOTE | 2022-12-10 15:06 | DI.US.S_ITS ---
PROCEDURE: US OB >= 14 WEEKS FETUS INDICATIONS: 20 Week Anatomy Scan OUTSIDE/PRIOR DATING DATA: Last menstrual period (LMP): 07/23/2022. LMP-based estimated date of delivery (STEPHANE): 04/29/2023. First dating scan (date and location): Today's exam. Estimated date of delivery (STEPHANE) from first dating scan: 04/28/2023. The calculations are made using the clinical STEPHANE of 04/29/2023. TECHNIQUE: Real-time scanning was performed of the fetus, with image documentation and biometric measurements. Endovaginal scanning: Not performed COMPARISON: [facility], , OB >= 14 WEEKS FETUS, 07/26/2021, 13:03. FINDINGS: General: A single living intrauterine gestation is present. Presentation: Variable. Placenta: Placental position is anterior , without previa. Amniotic fluid index: 19.5 cm, normal range is 5-24 cm. Single deepest vertical pocket is 5.5 cm. heart rate: 140 beats per minute. Maternal cervical canal: 3.7 cm long. Normal lower limit is 2.5 cm. biometrics: Biparietal diameter: 4.7 cm, 20 weeks 0 days Head circumference: 17.4 cm, 19 weeks 6 days Abdominal circumference: 14.7 cm, 20 weeks Femur length: 3.4 cm, 20 weeks 4 days Clinically estimated gestational age: 20 weeks Composite gestational age from present scan: 20 weeks 1 day Estimated weight and percentile: 339 g, 58th percentile Anatomic survey: Neuro: Ventricles are non-dilated at less than 10 mm. Cisterna magna is normal at 3-11 mm. Cerebellum is normal in size and morphology. Choroid plexus not well visualized. Nuchal skin fold: Normal at less than 6 mm between 14-21 weeks gestational age. Face: Nose and lips, facial profile are normal. Spine: No evidence for spina bifida. Heart: Not well visualized. Diaphragm: Diaphragm is intact. Stomach: Left-sided stomach is present. Kidneys: No hydronephrosis. Normal is less than 5 mm in 2nd trimester, less than 7 mm in 3rd trimester. Cord: 3-vessel cord has orthotopic insertion. Bladder: Normal in size. Extremities: All 4 extremities identified. IMPRESSION: 1. Single living intrauterine at 20 weeks 1 day, STEPHANE of 04/29/2023. 2. Choroid plexus and heart not well visualized. Repeat short-term follow-up should be considered. 3. Estimated weight of 339 g, 58th percentile. We strive to produce accurate, complete, and clear reports of imaging services. To assist us in improving patient care, this report was composed using standard report templates and voice recognition software. Therefore, it may contain abnormal punctuation, insertions and/or omissions. Occasional wrong-word or sound-alike substitutions may occur. Though we review the report and make efforts to correct it, we do recommend that the report be read carefully in proper context to recognize any text inaccuracies. Dictated by: Juanjose Velasquez M.D. on 12/10/2022 at 16:55 Approved by: Juanjose Velasquez M.D. on 12/10/2022 at 16:59
== END ==
PROVIDERS: Referring Provider Obstetrics & Gynecology; Visit Provider Obstetrics & Gynecology
DX: Z34.82 Encounter for supervision of other normal pregnancy, second trimester (principal); Z3A.20 20 weeks gestation of pregnancy
CPT/HCPCS: 36415; 76811; 82105; 82677; 84702; 86336

== ENCOUNTER → 2022-12-10 16:34 | Outpatient (CLI) | payer OTHER, MEDICAID, SELFPAY ==
[2022-12-14 03:03] LABS: AFP, Serum 90.7 ng/mL (.); Estriol, Free 2.31 ng/mL (.); Inhibin A, MoM 0.74 (.); Maternal Ethnicity Black (.); Maternal Weight 206 lbs (.); Number of Fetuses No (.); OSBR Risk 1 IN 3342 (.); Results Report (.); Test Results *Screen Negative* (.); hCG, MoM 1.06 (.); hCG, Serum 22869 mIU/mL (.)
== END ==
PROVIDERS: Referring Provider Obstetrics & Gynecology; Visit Provider Obstetrics & Gynecology
DX: Z34.82 Encounter for supervision of other normal pregnancy, second trimester (principal); Z3A.20 20 weeks gestation of pregnancy
CPT/HCPCS: 36415; 82105; 82677; 84702; 86336

== ENCOUNTER → 2022-12-25 10:34 | Outpatient (CLI) | payer OTHER, MEDICAID, SELFPAY ==
[2022-12-25 14:31] LABS: Urine Chlamydia NOT DETECTED; Urine N gonorrhoeae NOT DETECTED
== END ==
PROVIDERS: Visit Provider Obstetrics & Gynecology
DX: Z34.82 Encounter for supervision of other normal pregnancy, second trimester (principal); Z11.3 Encounter for screening for infections with a predominantly sexual mode of transmission; Z3A.18 18 weeks gestation of pregnancy
CPT/HCPCS: 87491; 87591

== ENCOUNTER → 2023-01-17 07:16 | Outpatient (CLI) | payer OTHER, MEDICAID, SELFPAY ==
--- NOTE | 2023-01-17 07:17 | DI.US.S_ITS ---
PROCEDURE: US OB FOLLOW UP INDICATIONS: RE-EVALUATE HEART, CHOROID OUTSIDE/PRIOR DATING DATA: Last menstrual period (LMP): 07/23/2022. LMP-based estimated date of delivery (STEPHANE): 04/29/2023. First dating scan (date and location): 12/10/2022. Estimated date of delivery (STEPHANE) from first dating scan: 04/28/2023. The calculations are made using the clinical STEPHANE of 04/29/2023. TECHNIQUE: Real-time scanning was performed of the fetus, with image documentation. COMPARISON: [facility], OB >= 14 WEEKS FETUS, 12/10/2022, 15:23. [facility], OB FOLLOW UP, 09/21/2021, 15:29. FINDINGS: General: A single living intrauterine gestation is present. Presentation: Vertex. Placenta: Placental position is anterior left, without previa. Amniotic fluid index: 15.2 cm, normal range is 5-24 cm. Single deepest vertical pocket is 6.6 cm. heart rate: 143 beats per minute. Maternal cervical canal: 3.3 cm long. Normal lower limit is 2.5 cm. Clinically estimated gestational age: 25 weeks 3 days Other: Bilateral choroid plexuses are normal in appearance. Four-chamber heart and are flow tracks are normal in appearance. IMPRESSION: 1. Dietrich living intrauterine at 25 weeks 3 days based on prior dating. 2. Normal placenta and amniotic fluid. 3. Normal choroid plexus and heart. We strive to produce accurate, complete, and clear reports of imaging services. To assist us in improving patient care, this report was composed using standard report templates and voice recognition software. Therefore, it may contain abnormal punctuation, insertions and/or omissions. Occasional wrong-word or sound-alike substitutions may occur. Though we review the report and make efforts to correct it, we do recommend that the report be read carefully in proper context to recognize any text inaccuracies. Dictated by: Thomas Moise M.D. on 01/17/2023 at 8:17 Approved by: Thomas Moise M.D. on 01/17/2023 at 8:21
== END ==
PROVIDERS: Referring Provider Obstetrics & Gynecology; Visit Provider Specialist
DX: Z36.2 Encounter for other antenatal screening follow-up; Z3A.25 25 weeks gestation of pregnancy
CPT/HCPCS: 76816

== ENCOUNTER → 2023-01-22 11:17 | Outpatient (CLI) | payer OTHER, MEDICAID, SELFPAY ==
[2023-01-22 12:51] LABS: Hematocrit 29.2 % (36-46); Hemoglobin 9.7 g/dL (12.0-16.0)
== END ==
PROVIDERS: Referring Provider Obstetrics & Gynecology; Visit Provider Obstetrics & Gynecology
DX: Z34.82 Encounter for supervision of other normal pregnancy, second trimester (principal); Z3A.26 26 weeks gestation of pregnancy
CPT/HCPCS: 36415; 85014; 85018

== ENCOUNTER → 2023-02-19 10:47 | Outpatient (CLI) | payer OTHER, MEDICAID, SELFPAY ==
[2023-02-19 12:58] LABS: Hematocrit 27.8 % (36-46); Hemoglobin 9.4 g/dL (12.0-16.0)
[2023-02-19 13:24] LABS: GTT (PREG) 1 Hour PP 50gm Dose 96 mg/dL (76-139)
== END ==
PROVIDERS: Referring Provider Obstetrics & Gynecology; Visit Provider Obstetrics & Gynecology
DX: Z34.92 Encounter for supervision of normal pregnancy, unspecified, second trimester (principal)
CPT/HCPCS: 36415; 82950; 85014; 85018

== ENCOUNTER → 2023-03-19 11:04 | Outpatient (CLI) | payer OTHER, MEDICAID, SELFPAY ==
[2023-03-19 12:24] LABS: Hematocrit 27.7 % (36-46); Hemoglobin 9.1 g/dL (12.0-16.0)
[2023-03-19 13:06] LABS: Ferritin 4 ng/mL (6-137)
== END ==
PROVIDERS: Referring Provider Obstetrics & Gynecology; Visit Provider Obstetrics & Gynecology
DX: O99.013 Anemia complicating pregnancy, third trimester (principal)
CPT/HCPCS: 36415; 82728; 85014; 85018

== ENCOUNTER → 2023-03-21 12:35 | Outpatient (CLI) | payer OTHER, MEDICAID, SELFPAY | PROVIDERS: Visit Provider Physician Assistant Medical | DX: R80.9 Proteinuria, unspecified (principal); R82.2 Biliuria; R82.4 Acetonuria; R82.998 Other abnormal findings in urine; Z34.83 Encounter for supervision of other normal pregnancy, third trimester; Z3A.34 34 weeks gestation of pregnancy | CPT/HCPCS: 87086 ==

== ENCOUNTER 2023-03-27 00:43 | Emergency (ER) | payer OTHER, MEDICAID, SELFPAY ==
[2023-03-27 00:56] VITALS: BP 113/69; PULSE 63; RESP 17; TEMP 36.8; O2SAT 100; BMI 37.2
[2023-03-27 01:00] VITALS: BP 98/61; PULSE 72; RESP 19; O2SAT 98
[2023-03-27 01:17] LABS: Add Manual Diff / Slide Review NO; Basophils Absolute Auto 0 /uL (0-100); Basophils Percent Auto 0.6 % (0-2); Eosinophils Absolute Auto 100 /uL (0-450); Hematocrit 27.1 % (36-46); Hemoglobin 8.9 g/dL (12.0-16.0); Lymphocytes Absolute Auto 2100 /uL (1100-4500); Lymphocytes Percent Auto 31.8 % (25-40); Mean Corpuscular Hemoglobin 24.7 PG (26-34); Mean Corpuscular Volume 75.1 fL (80-100); Monocytes Absolute Auto 500 /uL (0-900); Monocytes Percent Auto 7.6 % (3-14); Neutrophils Absolute Auto 3800 /uL (1500-7000); Platelet Count 230 X10^3/uL (150-400); Red Cell Distribution Width 15.4 % (11.6-14.8); White Blood Cell Count 6.5 X10^3/uL (4.5-11.0)
[2023-03-27 01:21] LABS: BUN Creatinine Ratio 12.5 (6-22); Blood Urea Nitrogen 7 mg/dL (7-17); Calcium 8.7 mg/dL (8.4-10.2); Carbon Dioxide 20 mmol/L (22-32); Chloride 104 mmol/L (98-107); Estimated Glomerular Filt Rate > 60 mL/min (>60); Glucose 87 mg/dL (70-100); HEMOLYSIS < 15 (0-50); Potassium 3.9 mmol/L (3.4-5.1); Sodium 132 mmol/L (137-145)
[2023-03-27 01:30] VITALS: BP 102/60; PULSE 64; RESP 18; O2SAT 99
--- NOTE | 2023-03-27 01:38 | ED_ITS ---
HPI - General Adult General Chief complaint: Dizziness Stated complaint: doesn't feel good anemia Time Seen by Provider: 03/27/23 00:48 Source: patient Mode of arrival: Ambulatory History of Present Illness HPI narrative: Patient is a 27-year-old female. She is 8 months . She is being followed by OB. She has had issues with anemia during this . There is an order for her to get an infusion of iron. This was put in by her primary OB doctor but she states she is attempted to call the infusion clinic in his left messages but no one has called her back. She states that over the past 24 hours she is felt very fatigued and lightheaded. States she just generally does not feel very well. No fevers. No chest pain. She is not having any abdominal cramping or vaginal bleeding or loss of fluid. Related Data Home Medications Medication Instructions Recorded Confirmed prenat.vits,prateek,ebo-[id number]-wvhlm 1 tab PO DAILY 04/27/21 03/21/23 Allergies Allergy/AdvReac Type Severity Reaction Status Date / Time latex Allergy Intermediate Red, Verified 03/21/23 11:25 irritated skin. Review of Systems Constitutional Constitutional: Reports system reviewed and no additional complaints, except as documented Cardiovascular Cardiovascular: Reports system reviewed and no additional complaints, except as documented Respiratory Respiratory: Reports system reviewed and no additional complaints, except as documented Gastrointestinal Gastrointestinal: Reports system reviewed and no additional complaints, except as documented Integumentary/Breasts Skin/Breast: Reports system reviewed and no additional complaints, except as documented Neurologic Neurologic: Reports system reviewed and no additional complaints, except as documented Hematologic/Lymphatic On Anticoagulants: No Patient History Medical History Gastroesophageal reflux during in first trimester, antepartum IUGR (intrauterine growth restriction) Late care affecting , antepartum Size of fetus inconsistent with dates in third trimester Surgical History History of weight loss surgery (~11/04/20) [place] teeth extracted (~11/2019) Family History (Updated 10/17/22 @ 10:10 by Vale Slade RN) Mother No problems noted. Father No problems noted. Grandmother No problems noted. Grandfather No problems noted. Grandmother Autoimmune disease Grandfather No problems noted. Social History marital status: number of children: 2 household members: spouse and children (Paige's daughter lives with them half of the year. 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 current occupational exposures/hazards: No special mehdi needs: No travel history: recent (domestic only) seatbelt use: always water heater temp set < 120 deg: Yes working smoke detector in home: Yes fire extinguisher in home: Yes carbon monox detector in home: Yes firearms in home: Yes firearms unloaded and locked: Yes do you feel safe at home: Yes Smoking Status: Never smoker second hand exposure: No alcohol intake: never substance use type: does not use during the past year weight has: other (fluctuation after gastric sleeve) well-balanced diet: daily or most days (Small, frequent meals, eat well most of time.) daily servings fruits/ve-4 caffeine: Yes (Czech milk tea, 4 small cans/week. ) Type(s) of exercise: none (c/o being winded just walking around in her home) frequency: daily duration: 30-45 minutes/day Smoking Status: Never smoker Exam Initial Vital Signs Initial Vital Signs: Vital Signs Temperature 98.3 F 03/27/23 00:56 Pulse Rate 63 03/27/23 00:56 Respiratory Rate 17 03/27/23 00:56 Blood Pressure 113/69 03/27/23 00:56 Pulse Oximetry 100 03/27/23 00:56 Oxygen Delivery Method Room Air 03/27/23 00:56 HENMT Head: normal to inspection and normocephalic Resp Effort & Inspection: normal respiratory effort Auscultation: clear to auscultation bilaterally Cardio Rate: regular rate Rhythm: regular rhythm GI Other: Gravid abdomen Skin General: no rashes or lesions noted Neuro General: patient alert, patient awake and moves all extremities Extrem General: normal to inspection and capillary refill normal Course Orders Ordered: ED Orders 03/27/23 00:56 Basic Metabolic Panel Stat Complete Blood Count AUTO DIFF Stat Vital Signs Vital signs: Vital Signs - 8 hr 03/27/23 00:56 03/27/23 01:00 03/27/23 01:00 Temperature 98.3 F Pulse Rate 63 72 Respiratory Rate 17 19 Blood Pressure 113/69 98/61 Pulse Oximetry 100 98 Oxygen Delivery Method Room Air 03/27/23 01:30 03/27/23 01:30 Temperature Pulse Rate 64 Respiratory Rate 18 Blood Pressure 102/60 Pulse Oximetry 99 Oxygen Delivery Method Medical Decision Making Lab Data Lab results reviewed: Yes I reviewed the patient's lab results. 03/27/23 00:56 03/27/23 00:56 Labs: Lab Results 03/27/23 03/27/23 Range/Units 00:56 00:56 WBC 6.5 (4.5-11.0) X10^3/uL RBC 3.60 L (4.0-5.2) X10^6/uL Hgb 8.9 L (12.0-16.0) g/dL Hct 27.1 L (36-46) % MCV 75.1 L (80-100) fL MCH 24.7 L (26-34) PG MCHC 33.0 (30-36) % RDW 15.4 H (11.6-14.8) % Plt Count 230 (150-400) X10^3/uL Neut % (Auto) 59.0 (50-75) % Lymph % (Auto) 31.8 (25-40) % [place] % (Auto) 7.6 (3-14) % Eos % (Auto) 1.0 L (2-4) % Baso % (Auto) 0.6 (0-2) % Neut # (Auto) 3800 (5000-0704) /uL Lymph # (Auto) 2100 (5179-4765) /uL [place] # (Auto) 500 (0-900) /uL Eos # (Auto) 100 (0-450) /uL Baso # (Auto) 0 (0-100) /uL Sodium 132 L (137-145) mmol/L Potassium 3.9 (3.4-5.1) mmol/L Chloride 104 (98-107) mmol/L Carbon Dioxide 20 L (22-32) mmol/L BUN 7 (7-17) mg/dL Creatinine 0.56 (0.52-1.04) mg/dL Estimated GFR > 60 (>60) mL/min BUN/Creatinine Ratio 12.5 (6-22) Glucose 87 (70-100) mg/dL Calcium 8.7 (8.4-10.2) mg/dL MDM Narrative Medical decision making narrative: Patient does not have any direct OB related complaints. She does have a gravid abdomen but has no discomfort. No loss of fluid. No vaginal bleeding. The symptoms that she is feeling have actually been going on for several weeks/months. She is anemic but certainly not at a point that would require any blood transfusion this evening. No indication for an emergent iron infusion. Patient has had a gastric sleeve procedure. She does not take any vitamins. States she has been on vitamins with iron in the past but they have caused her quite a bit of nausea. Reassured patient. No emergent intervention needed here in the emergency department. Will have her contact her primary doctor and her OB doctor and also she was instructed to contact the infusion clinic tomorrow when they open to schedule her iron infusion. Discharge Plan Departure Patient Disposition: Home Clinical Impression: Fatigue, Anemia Instructions: DI for Fatigue, Anemia in Activity Restrictions/Additional Instructions: I do recommend that you keep all of your scheduled medical appointments. Also recommend that when the clinics open later today you contact the infusion clinic to schedule an infusion of the iron. Return to the emergency department for new symptoms. Prescriptions: No Action prenat.vits,prateek,qal-gowj-nwvzi Tablet 1 tab PO DAILY Referrals: ProviderHardy [Primary Care Provider] - Stand Alone Forms: Patient Portal/API
== END 2023-03-27 01:46 | disposition home or self-care (01) ==
PROVIDERS: Emergency Provider Emergency Medicine
DX: O26.813 Pregnancy related exhaustion and fatigue, third trimester (principal); D64.9 Anemia, unspecified
CPT/HCPCS: 36415; 80048; 85025; 99283

== ENCOUNTER → 2023-04-02 10:20 | Outpatient (CLI) | payer OTHER, MEDICAID, SELFPAY ==
[2023-04-03 15:55] LABS: Strep Grp B PCR NEG for Grp B Strep
== END ==
PROVIDERS: Visit Provider Obstetrics & Gynecology
DX: Z34.83 Encounter for supervision of other normal pregnancy, third trimester (principal); Z3A.36 36 weeks gestation of pregnancy
CPT/HCPCS: 87653

== ENCOUNTER 2023-04-26 21:32 | Inpatient (IN) | payer OTHER, SELFPAY ==
--- NOTE | 2023-04-26 22:57 | PM.OBHP.1 ---
OB HPI Date/Time Date of admission: 04/26/23 Date Patient Seen: 04/26/23 Time Patient Seen: 22:57 History of Present Condition Chief complaint: Labor : 3 Para: 2 Estimated Date of Delivery: 04/29/23 Estimated Gestational Age (weeks): 39 Narrative: Eddie Bowie is a 27 year old female admitted in active labor History of Present care: good care, initiated at week # (14), number of visits (12) and pounds weight gain (8) Dating criteria: LMP confirmed by 1st trimester US Ultrasounds: normal mid trimester US Obstetrical complications: none Medical complications: none Preadmission Labs Blood type: A (+) positive -: Antibody screen: negative, GBS status: negative, HBsAG: negative, HIV: negative and RPR/VDLR: negative -: Chlamydia screen: not detected and Gonorrhea screen: not detected -: Rubella: immune and Varicella: not immune HCAB: negative Quad screen: Normal 1 hr GTT: 96 Prior (ies) History: Del. DateGA/WeeksLabor LgthBirth WtSexRouteOutcomeAnesthesiaPlace DelvBreastfeedPreg CompName 12/03/15 39.4 4 7 lb 14 oz [facility] [place] [facility], latch challenges. none meconium[place] 09/26/21 39.2 9 6 lb 1 oz Malevaginallive - full termepiduralIH 9 months noneAdonis Evaluation Evaluation Baseline heart rate: 120 Variability: Moderate (11-25) monitor accelerations: Present Monitor Decelerations: Absent Contraction Frequency (minutes): 7 Uterine Contraction Intensity: Moderate Category of Tracing: Reactive Status: Category l Dilation (cm): 4 Effacement (%): 80 station: 0 Position of cervix: anterior Consistency: soft PFSH Medical History Gastroesophageal reflux during in first trimester, antepartum IUGR (intrauterine growth restriction) Late care affecting , antepartum Size of fetus inconsistent with dates in third trimester Surgical History History of weight loss surgery (~11/04/20) [place] teeth extracted (~11/2019) Family History (Updated 10/17/22 @ 10:10 by Vale Slade RN) Mother No problems noted. Father No problems noted. Grandmother No problems noted. Grandfather No problems noted. Grandmother Autoimmune disease Grandfather No problems noted. Social History marital status: number of children: 2 household members: spouse and children (Paige's daughter lives with them half of the year. 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 current occupational exposures/hazards: No special mehdi needs: No travel history: recent (domestic only) seatbelt use: always water heater temp set < 120 deg: Yes working smoke detector in home: Yes fire extinguisher in home: Yes carbon monox detector in home: Yes firearms in home: Yes firearms unloaded and locked: Yes do you feel safe at home: Yes Smoking Status: Never smoker second hand exposure: No alcohol intake: never substance use type: does not use during the past year weight has: other (fluctuation after gastric sleeve) well-balanced diet: daily or most days (Small, frequent meals, eat well most of time.) daily servings fruits/ve-4 caffeine: Yes (Surinamese milk tea, 4 small cans/week. ) Type(s) of exercise: none (c/o being winded just walking around in her home) frequency: daily duration: 30-45 minutes/day Meds Home Medications and Allergies Home Medications Medication Instructions Recorded Confirmed Type prenat.vits,prateek,cws-tzfd-dhufj 1 tab PO DAILY 04/27/21 04/25/23 History Allergies Allergy/AdvReac Type Severity Reaction Status Date / Time latex Allergy Intermediate Red, Verified 04/25/23 15:03 irritated skin. Review of Systems Review of Systems Narrative: Patient with increasing contractions. No vaginal bleeding. No rupture membranes. No headaches, scotomata, epigastric pain. OB Exam Vital signs Blood Pressure: 108/70 Pulse Rate: 66 Temperature: 36.3 F Narrative Exam Narrative: HEENT exam within normal limits. Lungs are clear to auscultation percussion. Heart is regular rate rhythm no S3-S4 murmurs. Abdomen is gravid. Fetus is vertex. Extremities without edema and nontender. Objective Labs 04/26/23 23:15 Assessment and Plan Assessment and Plan Assessment and Plan narrative: 39 week 4 day gestation in active labor. Patient requesting epidural for pain control. Anticipate vaginal delivery. Time Spent with Patient Total time spent with greater than 50% in coordination of care (as documented) at patient's floor/unit and/or counseling patient:: less than 15 minutes
[2023-04-26 23:05] VITALS: BP 108/70; TEMP 2.4; TEMP 36.3
[2023-04-26 23:08] VITALS: PULSE 66
[2023-04-26 23:24] LABS: Add Manual Diff / Slide Review NO; Basophils Absolute Auto 0 /uL (0-100); Basophils Percent Auto 0.3 % (0-2); Eosinophils Absolute Auto 0 /uL (0-450); Eosinophils Percent Auto 0.4 % (2-4); Hematocrit 29.1 % (36-46); Hemoglobin 9.3 g/dL (12.0-16.0); Lymphocytes Absolute Auto 2100 /uL (1100-4500); Mean Corpuscular HGB Conc 32.1 % (30-36); Mean Corpuscular Hemoglobin 22.8 PG (26-34); Mean Corpuscular Volume 71.2 fL (80-100); Monocytes Absolute Auto 500 /uL (0-900); Monocytes Percent Auto 6.6 % (3-14); Neutrophils Absolute Auto 5100 /uL (1500-7000); Neutrophils Percent Auto 65.7 % (50-75); Platelet Count 250 X10^3/uL (150-400); Red Blood Cell Count 4.09 X10^6/uL (4.0-5.2); Red Cell Distribution Width 16.4 % (11.6-14.8); White Blood Cell Count 7.7 X10^3/uL (4.5-11.0)
[2023-04-26] MEDS: LACTATED RINGERS 1,000 ML 100 ML IV (23:30)
[2023-04-27] MEDS: LACTATED RINGERS 1,000 ML 100 ML IV (00:37)
[2023-04-27] MEDS: CALCIUM CARBONATE 500 MG TAB 1000 MG PO (00:40)
--- NOTE | 2023-04-27 02:37 | P.PCN_ITS ---
Regional Block Pre-procedure Procedure: Continuous Lumbar Epidural for L&D Attending OB provider: Shabnam Mcqueen PMH/ROS narrative: term labor, no complications, no sig PMH ASA Class: II Labs: Hct 29.1 % (36-46) L 04/26/23 23:15 Plt Count 250 X10^3/uL (150-400) 04/26/23 23:15 Medications: Current Medications Generic Name Dose Route Start Last Admin Trade Name Freq PRN Reason Stop Dose Admin Calcium Carbonate 1,000 mg 04/26/23 22:21 04/27/23 00:40 Calcium Carbonate 500 Mg Tab PO 1,000 mg Q4HR PRN Administration Dyspepsia Carboprost Tromethamine 250 mcg 04/26/23 22:21 Carboprost 250 Mcg/Ml Ampul IM Q90M PRN Bleeding Fentanyl 50 mcg 04/26/23 22:21 Fentanyl 100 Mcg/2 Ml Inj IV Q1H PRN Pain, Moderate (4-6) Oxytocin/Lactated Ringer's 30 unit in 500 mls @ 200 mls/hr 04/26/23 22:21 Oxytocin Premix IV CONT PRN Bleeding Protocol Tranexamic Acid 1,000 mg/ 100 mls @ 200 mls/hr 04/26/23 22:21 Sodium Chloride IV NOW PRN Bleeding Oxytocin/Lactated Ringer's 30 unit in 500 mls @ 2 mls/hr 04/26/23 22:30 Oxytocin Premix IV TITRATE GARRETT Protocol 2 MILLIUNIT/MIN Lactated Ringer's 1,000 mls @ 100 mls/hr 04/26/23 22:30 04/27/23 00:37 Lactated Ringers IV 100 mls/hr CONT GARRETT Administration Lidocaine HCl 20 ml 04/26/23 22:21 Lidocaine 1% 20 Ml INJ INTRA-OP PRN Post Delivery Methylergonovine Maleate 0.2 mg 04/26/23 22:21 Methylergonovine 0.2 Mg Tablet PO Q6HR PRN Heavy Bleeding Methylergonovine Maleate 0.2 mg 04/26/23 22:21 Methylergonovine 0.2 Mg/Ml Vial IM NOW PRN Bleeding Misoprostol 800 mcg 04/26/23 22:21 Misoprostol 200 Mcg Tablet VT NOW PRN Bleeding Misoprostol 400 mcg 04/26/23 22:21 Misoprostol 200 Mcg Tablet SL NOW PRN Bleeding Naloxone HCl 0.2 mg 04/26/23 22:21 Naloxone 0.4 Mg/Ml Vial IV Q2MIN PRN Opiate Reversal Ondansetron HCl 4 mg 04/26/23 22:21 Ondansetron 4 Mg/2 Ml Inj IV Q4HR PRN Nausea And Vomiting Oxytocin 10 unit 04/26/23 22:21 Oxytocin 10 Unit/Ml Vial IM NOW PRN Bleeding Allergies: Allergies Allergy/AdvReac Type Severity Reaction Status Date / Time latex Allergy Intermediate Red, Verified 04/25/23 15:03 irritated skin. Procedure Insertion date: 04/27/23 Insertion time: 00:07 Prep/Local: betadine x3 and 1% lidocaine Interspace: L34 Patient position: sitting Needle: 18 gauge [employer] (CSE: 27g pencan through Hust[employer], clear CSF, 2.5mg MPF bupiv) Loss of resistance with: saline KRISTY at (cm): 6 Catheter placed at SKIN (cm): 9 Catheter in SPACE (cm): 3 Insertion: No CSF, No Blood, No Paresthesia with insertion, No Paresthesia with injection and No Test dose reaction Initial Medications TEST DOSE time: 00:08 TEST DOSE: 1.5% lidocaine with epinephrine 1:200k (mL): 3 BOLUS DOSE time: 00:09 BOLUS DOSE (mL): 4 BOLUS DOSE med: other (infusate) Infusion INFUSION: 0.125% bupivacaine and with fentanyl 2 mcg/mL Initial rate (mL/hr): 10 Subsequent interventions: 0200 mL 0.25% 0235 50mcg fentanyl, 6mL 2-chloroprocaine Post-procedure Anesthesia time START: 00:01 Anesthesia time END: 02:50 Post-procedure Anesthesia Assessment: Yes CV function: HR/BP stable, Yes Resp function: RR/sat/airway adequate, Yes Post-op hydration adequate, Yes Pain control adequate, Yes Nausea & vomiting absent, Yes Temperature > 36 C, Yes Mental status appropriate and No Anesthesia complications
--- NOTE | 2023-04-27 03:06 | PM.OBPRVD ---
Labor & Delivery Delivery date: 04/27/23 Intrapartal Events: Ineffective Pushing Cervical ripening method: none Induction method: none Delivery monitor: external FHT and external uterine Route of delivery: vacuum extraction (Ineffective pushing) Indication for instrumentation: maternal exhaustion L&D Laceration Description: None Estimated blood loss (mL): 100 Anesthesia Type: Epidural (Not effective) Narrative: Patient arrived on Labor and delivery in active labor. She received an epidural catheter for pain control however she did not get adequate pain control with the epidural. She had spontaneous rupture membranes clear fluid. heart tones category 1 to category 2 throughout labor. When completely dilated the patient was unable to push due to the pain. Vacuum was placed for 1 contraction to assist with expediting delivery. The viable male infant was delivered over an intact perineum. The infant was placed on maternal abdomen. Delayed cord clamping was performed. After the cord was cut the cord bloods were obtained. The placenta delivered spontaneously, intact, with 3 vessels. There were no cervical, vaginal, or perineal tears. Both baby and mother doing well. Baby 1: gender: Male Presentation: vertex Position: Left Occiput Anterior Placenta delivery description: Spontaneous Cord Vessel Description: 3 Vessels score (1 min): 9 score (5 min): 9 Plan for aftercare: Routine care
[2023-04-27 04:03] VITALS: BP 117/57
[2023-04-27] MEDS: OXYTOCIN PREMIX 30 UNIT/500 ML PLAST..BAG 200 UNIT IV (04:51)
[2023-04-27] MEDS: IBUPROFEN 600 MG TABLET PO ×3 (07:08→19:34)
[2023-04-27] MEDS: FERROUS SULFATE 325 MG TABLET PO (09:19)
[2023-04-27] MEDS: PRENATAL VIT,CALC/IRON/FOLIC 1 TABLET 1 TAB PO (09:19)
[2023-04-27] MEDS: CALCIUM CARBONATE 500 MG TAB PO ×2 (09:54→21:55)
[2023-04-27 12:18] LABS: Add Manual Diff / Slide Review NO; Basophils Absolute Auto 0 /uL (0-100); Basophils Percent Auto 0.2 % (0-2); Eosinophils Absolute Auto 0 /uL (0-450); Eosinophils Percent Auto 0.3 % (2-4); Hematocrit 28.5 % (36-46); Hemoglobin 9.2 g/dL (12.0-16.0); Lymphocytes Absolute Auto 1400 /uL (1100-4500); Lymphocytes Percent Auto 15.9 % (25-40); Mean Corpuscular HGB Conc 32.2 % (30-36); Mean Corpuscular Hemoglobin 22.9 PG (26-34); Monocytes Absolute Auto 600 /uL (0-900); Monocytes Percent Auto 6.2 % (3-14); Neutrophils Absolute Auto 6900 /uL (1500-7000); Neutrophils Percent Auto 77.4 % (50-75); Platelet Count 225 X10^3/uL (150-400); Red Blood Cell Count 4.01 X10^6/uL (4.0-5.2); Red Cell Distribution Width 16.6 % (11.6-14.8); White Blood Cell Count 8.9 X10^3/uL (4.5-11.0)
--- NOTE | 2023-04-27 15:58 | P.PNOB_ITS ---
Subjective - OB Subjective Patient comments: no complaints [place] baby status: doing well feeding status: exclusively breast feeding Narrative: Post vacuum assisted vaginal delivery Date Patient Seen: 04/27/23 Time Patient Seen: 16:00 Interval history: Patient states her pain is under control. Bleeding is mild. She is breast-feeding without difficulty. No concerns. Exam Vital Signs (past 8 hours): Blood pressure 102/68, pulse 64, temperature 98.3? Narrative Exam Narrative: Abdomen is soft, nontender. Uterus is firm, U-1, nontender. Mild lochia. Extr emities without edema and nontender. Objective Labs 04/27/23 12:10 Labs: Laboratory Results - last 24 hr 04/26/23 04/26/23 04/27/23 23:15 23:15 12:10 WBC 7.7 8.9 RBC 4.09 4.01 Hgb 9.3 L 9.2 L Hct 29.1 L 28.5 L MCV 71.2 L 71.0 L MCH 22.8 L 22.9 L MCHC 32.1 32.2 RDW 16.4 H 16.6 H Plt Count 250 225 Neut % (Auto) 65.7 77.4 H Lymph % (Auto) 27.0 15.9 L [place] % (Auto) 6.6 6.2 Eos % (Auto) 0.4 L 0.3 L Baso % (Auto) 0.3 0.2 Neut # (Auto) 5100 6900 Lymph # (Auto) 2100 1400 [place] # (Auto) 500 600 Eos # (Auto) 0 0 Baso # (Auto) 0 0 Blood Type A Positive Antibody Screen Negative Assessment & Plan Plan day: 0 plan OB: routine care Comments: Home in a.m. if stable. Time Spent With Patient Time: Total time spent is greater than 50% in coordination of care (as documented) at patient's floor/unit and/or counseling patient: Time with patient: less than 15 minutes
[2023-04-27] MEDS: ACETAMINOPHEN 325 MG TABLET 650 MG PO (19:34)
[2023-04-27] MEDS: LANOLIN OINT 7 GM 1 APPLIC TOP (19:36)
[2023-04-28] MEDS: ACETAMINOPHEN 325 MG TABLET 650 MG PO ×2 (01:39→07:52)
[2023-04-28] MEDS: IBUPROFEN 600 MG TABLET PO ×2 (01:39→07:53)
[2023-04-28] MEDS: DERMOPLAST SPRAY 20% 60 ML 1 SPRAY TOP (01:39)
--- NOTE | 2023-04-28 07:31 | P.DS_ITS ---
Discharge Providers Provider Date of admission: 04/26/23 21:32 Discharge Date: 04/28/23 Primary care physician: Hardy TELLO Provider Consults: 04/26/23 22:21 Consult to Anesthesiology Urgent Comment: Consulting Provider: Anesthesiologist Reason for consultation: Epidural 04/28/23 03:04 Consult to Plant Floor Automation Manager Routine Comment: Discharge provider: Shabnma Mcqueen MD Summary Hospital Course Date Patient Seen: 04/28/23 Time Patient Seen: 07:31 Diagnoses: Vacuum assisted vaginal delivery at 39 weeks Hospital Course: Patient arrived in Labor and delivery in active labor. She received an epidural catheter for pain control however it did not work well. She was unable to push so a vacuum extraction was performed. There were no vaginal tears. Patient did well . She is urinating and ambulating well. Minimal lochia. No signs or symptoms of preeclampsia. Peripartum Data Delivery Method: Assisted Delivery (Vacuum assisted vaginal delivery) Laceration Description: None Procedures: Epidural catheter, vacuum assisted vaginal delivery complications: none 1: Gender: Male Disposition of : home Discharge Diagnosis (1) Vaginal delivery: Status: Acute Problem Details: Vacuum assisted for maternal exhaustion (2) Anemia affecting : Status: Acute Problem Details: Chronic Status at Discharge Cognitive/behavioral status at discharge: oriented Functional status at discharge: independent ambulation Overall status at discharge: patient is progressing back to baseline Time Spent with Patient Time attestation: Total time spent providing and/or coordinating discharge services: Time spent: Less than 30 minutes Objective Labs 04/27/23 12:10 Labs: Laboratory Results - last 24 hr 04/27/23 12:10 WBC 8.9 RBC 4.01 Hgb 9.2 L Hct 28.5 L MCV 71.0 L MCH 22.9 L MCHC 32.2 RDW 16.6 H Plt Count 225 Neut % (Auto) 77.4 H Lymph % (Auto) 15.9 L [place] % (Auto) 6.2 Eos % (Auto) 0.3 L Baso % (Auto) 0.2 Neut # (Auto) 6900 Lymph # (Auto) 1400 [place] # (Auto) 600 Eos # (Auto) 0 Baso # (Auto) 0 Exam Vital Signs (past 8 hours): Blood pressure 80/55, pulse 67, temperature 98.3? Narrative Exam Narrative: Abdomen is soft, nontender. Uterus is firm, at U, nontender. Mild lochia. Extremities without edema and nontender. Discharge Plan Discharge Plan Patient Disposition: Home Discharge orders & Medications Prescriptions: New ferrous sulfate 325 mg (65 mg iron) Tablet 325 mg PO DAILY Qty: 30 0RF ibuprofen 600 mg Tablet 600 mg PO Q6HR PRN (Reason: Pain, Mild (1-3)) Qty: 20 0RF Continued prenat.vits,prateek,kki-idmv-vuhpo Tablet 1 tab PO DAILY Follow up/Referrals: ProviderHardy [Primary Care Provider] - Yamil Hanson MD [Physician] - 6 Weeks Diet/Activity/Treatments Diet: Regular Activity: Nothing in vagina for 6 weeks Skin/Wound/Dressing Care Report to your healthcare provider any signs of infection, such as:: chills, fever and increased pain Visit Report/Discharge Packet Stand Alone Forms: Patient Portal/API Discharge Data Primary Care Provider: Hardy Gilbert
[2023-04-28] MEDS: FERROUS SULFATE 325 MG TABLET PO (08:55)
[2023-04-28] MEDS: PRENATAL VIT,CALC/IRON/FOLIC 1 TABLET 1 TAB PO (08:55)
[2023-04-28 10:52] VITALS: BP 117/57; PULSE 66; TEMP 2.4; TEMP 36.3
== END 2023-04-28 11:20 | disposition home or self-care (01) | DRG 807 ==
PROVIDERS: Admitting Provider Specialist; Referring Provider Specialist; Visit Provider Specialist
DX: O99.02 Anemia complicating childbirth (principal); Z37.0 Single live birth; Z3A.39 39 weeks gestation of pregnancy; Z67.10 Type A blood, Rh positive
CPT/HCPCS: 36415; 59025; 59050; 59400; 59409; 85025; 86850; 86900; 86901; G0379; J2590

== ENCOUNTER → 2025-02-16 16:00 | Outpatient (CLI) | payer OTHER, SELFPAY ==
[2025-02-16 16:23] LABS: Add Manual Diff / Slide Review NO; Basophils Absolute Auto 0 /uL (0-100); Basophils Percent Auto 0.4 % (0-2); Eosinophils Absolute Auto 100 /uL (0-450); Eosinophils Percent Auto 3.4 % (2-4); Hematocrit 36.7 % (36-46); Lymphocytes Absolute Auto 2100 /uL (1100-4500); Lymphocytes Percent Auto 48.2 % (25-40); Mean Corpuscular HGB Conc 32.8 % (30-36); Mean Corpuscular Hemoglobin 27.5 PG (26-34); Mean Corpuscular Volume 83.9 fL (80-100); Monocytes Absolute Auto 400 /uL (0-900); Monocytes Percent Auto 8.7 % (3-14); Neutrophils Absolute Auto 1700 /uL (1500-7000); Neutrophils Percent Auto 39.3 % (50-75); Platelet Count 262 X10^3/uL (150-400); Red Blood Cell Count 4.37 X10^6/uL (4.0-5.2); Red Cell Distribution Width 14.4 % (11.6-14.8); White Blood Cell Count 4.4 X10^3/uL (4.5-11.0)
[2025-02-16 16:48] LABS: Alanine Aminotransferase 16 IU/L (<35); Albumin 4.2 g/dL (3.5-5.0); Albumin Globulin Ratio 1.4 (1.0-2.8); Alkaline Phosphatase 58 U/L (38-126); Aspartate Aminotransferase 23 IU/L (14-36); BUN Creatinine Ratio 18.1 (6-22); Bilirubin Total 0.6 mg/dL (0.2-1.3); Blood Urea Nitrogen 13 mg/dL (7-17); Calcium 9.1 mg/dL (8.4-10.2); Carbon Dioxide 24 mmol/L (22-32); Chloride 105 mmol/L (98-107); Estimated Glomerular Filt Rate > 60 mL/min (>60); Globulin 2.9 g/dL (1.7-4.1); Glucose 96 mg/dL (70-99); HEMOLYSIS < 15 (0-50); Sodium 138 mmol/L (137-145); Total Protein 7.1 g/dL (6.3-8.2)
[2025-02-16 17:24] LABS: Ferritin 7 ng/mL (6-137)
[2025-02-16 17:55] LABS: Folate 5.9 ng/mL (2.76-20.0); Vitamin B12 297 pg/mL (239-931)
== END ==
LOC: LAB 16:02
PROVIDERS: PCP Family Medicine; Referring Provider Family Medicine; Visit Provider Family Medicine
DX: O99.013 Anemia complicating pregnancy, third trimester (principal)
CPT/HCPCS: 36415; 80053; 82607; 82728; 82746; 85025